=== PATIENT | female | born 1995 | race Caucasian/White ===

== ENCOUNTER → 2016-08-15 | Outpatient (CLI) | payer BC ==
[~2016-08-15] MED LIST: ALBUTEROL SULFAT3 M3 IH; AMOXICILLIN/CLA1 TA1 PO; ASMANEX TW110 MCG/Ac IH; BACTRIM DS 8001 TAB PO; DECADRON 4MG TAB4 MG PO; DOXYCYCLINE HY100 MG PO; FLOMAX 0.40.4 MG/CAP PO; IMITREX 5MGNAS NS; INFANTS AQU400 IU/ML PO; PERCOCET 325 MG1 TA2 PO; PREDNISONE20 MG PO; PROVENTIL0.09 MG/A1 IH; SINGULAIR 110 MG/TAB PO; TESSALON P100 MG/CAP PO; TESSALON PERLE200 MG PO; ULTRAM 50MG TAB50 MG PO; ZITHROMAX Z PA250 MG PO; ZOFRAN8 MG PO
== END ==
LOC: COL.PUL 08:55
DX: J45.40 Moderate persistent asthma, uncomplicated (principal)

== ENCOUNTER 2016-08-23 02:49 | Emergency (ER) | payer BC ==
[~2016-08-23] VITALS: Ht 170.2 cm; Wt 129.5 kg
[~2016-08-23 02:49] MED LIST changes: -BACTRIM DS 8001 TAB PO; -DECADRON 4MG TAB4 MG PO; -FLOMAX 0.40.4 MG/CAP PO; -IMITREX 5MGNAS NS; -INFANTS AQU400 IU/ML PO; -PERCOCET 325 MG1 TA2 PO; -TESSALON P100 MG/CAP PO; -ULTRAM 50MG TAB50 MG PO; -ZITHROMAX Z PA250 MG PO; -ZOFRAN8 MG PO
[2016-08-23 02:51] VITALS: TEMP 97.7
[2016-08-23] MEDS ORDERED: INFANTS AQU400 IU/ML PO (02:54)
[2016-08-23] MEDS ORDERED: IMITREX 5MGNAS NS (02:54)
[2016-08-23 03:22] LABS: BASO # 0.1 (0.0-0.2); BASO % 0.5 % (0.0-2.0); EOS # 0.1 (0.0-0.7); GRAN # 6.7 (1.4-6.5); GRAN % 58.5 % (42.2-75.2); HEMOGLOBIN 13.1 g/dl (12.5-16.0); LYMPH # 3.6 (1.2-3.4); LYMPH % 31.2 % (20.0-51.0); MEAN CELL VOLUME 85 fl (80.0-100.0); MEAN CORPUSCULAR HEMOGLOBIN 29 pg (27.0-31.0); MEAN CORPUSCULAR HGB CONC 34 g/dl (33.0-37.0); MEAN PLATELET VOLUME 10.3 fl (7.4-10.4); MONO % 8.4 % (1.7-9.3); PLATELET COUNT 284 K/mm3 (130-400); REDCELL DISTRIBUTION WIDTH-CV 12.9 % (11.5-14.5); WHITE BLOOD COUNT 11.4 K/mm3 (4.8-10.8)
[2016-08-23 03:29] LABS: ADJUSTED CALCIUM 9.3 mg/dL (8.4-10.2); ALBUMIN 3.9 gm/dL (3.5-5.0); BILIRUBIN,TOTAL 0.6 mg/dL (0.0-1.0); CALCIUM 9.2 mg/dL (8.4-10.2); CREATININE, serum 0.78 mg/dL (0.52-1.25); POTASSIUM 3.7 mmol/L (3.4-5.0); TOTAL PROTEIN 7.4 gm/dL (6.4-8.2)
[2016-08-23 03:59] LABS: PH 5 (5-8); SQUAMOUS EPITHELIAL 20-50 /hpf; URINE APPEARANCE Cloudy; URINE BACTERIA Rare /hpf; URINE BILIRUBIN Negative (NEGATIVE); URINE BLOOD 3+ (NEGATIVE); URINE COLOR Yellow; URINE GLUCOSE Negative (NEGATIVE); URINE KETONE Negative (NEGATIVE); URINE RBC >50 /hpf; URINE UROBILINOGEN Negative (NEGATIVE)
[2016-08-23 05:24] VITALS: BP 117/64; PULSE 88
[2016-08-23] MEDS ORDERED: ZOFRAN8 MG PO (05:24)
[2016-08-23] MEDS ORDERED: PERCOCET 325 MG1 TA2 PO (05:24)
[2016-08-23] MEDS ORDERED: BACTRIM DS 8001 TAB PO (05:24)
[2016-08-23] MEDS ORDERED: ULTRAM 50MG TAB50 MG PO (05:24)
[2016-08-23] MEDS ORDERED: FLOMAX 0.40.4 MG/CAP PO (05:24)
== END 2016-08-23 06:08 | disposition home or self-care (01) ==
LOC: COL.ER 02:49
PROVIDERS: Emergency Medicine
DX: N13.2 Hydronephrosis with renal and ureteral calculous obstruction (principal)
CPT/HCPCS: J1170; J1885; J2405; J2765; J7030; Q9967

== ENCOUNTER 2016-09-07 19:08 | Emergency (ER) | payer BC ==
[~2016-09-07] VITALS: Ht 170.2 cm; Wt 123.2 kg
[~2016-09-07 19:08] MED LIST changes: +BACTRIM DS 8001 TAB PO; +FLOMAX 0.40.4 MG/CAP PO; +IMITREX 5MGNAS NS; +INFANTS AQU400 IU/ML PO; +PERCOCET 325 MG1 TA2 PO; +ULTRAM 50MG TAB50 MG PO; +ZOFRAN8 MG PO
[2016-09-07 19:25] VITALS: TEMP 98.2
[2016-09-07] MEDS ORDERED: ZITHROMAX Z PA250 MG PO (21:12)
[2016-09-07] MEDS ORDERED: DECADRON 4MG TAB4 MG PO (21:17)
[2016-09-07 21:38] VITALS: BP 138/78; PULSE 128
[2016-09-07] MEDS ORDERED: TESSALON P100 MG/CAP PO (21:49)
== END 2016-09-07 21:53 | disposition home or self-care (01) ==
LOC: COL.ER 19:08
DX: J45.901 Unspecified asthma with (acute) exacerbation (principal)
CPT/HCPCS: J8540